=== PATIENT | male | born 1955 | race Caucasian/White ===

== ENCOUNTER 2018-10-18 07:55 | Emergency (ER) | payer OTHER ==
[~2018-10-18] VITALS: Ht 180.3 cm; Wt 81.7 kg
[2018-10-18] MEDS ORDERED: PREDNISONE 20 M20 M1 PO (08:18)
[2018-10-18] MEDS ORDERED: KEFLEX500 M1 PO (08:18)
[2018-10-18 08:23] VITALS: BP 133/98
== END 2018-10-18 08:24 | disposition home or self-care (01) ==
LOC: M.ERS 07:55
DX: L25.9 Unspecified contact dermatitis, unspecified cause (principal)